=== PATIENT | male | born 1965 | race Caucasian/White ===

== ENCOUNTER → 2018-06-23 08:00 | Outpatient (CLI) | payer MEDICARE ==
[~2018-06-23 08:00] MED LIST: BIKTARVY; BUPROPION XL150 MG PO; BUSPAR 15 MG TA15 MG PO; CYMBALTA60 MG PO; DAPSONE100 MG PO; ELAVIL25 MG PO; FLOMAX0.4 MG PO; HCTZ25 MG PO; KLONOPIN1 MG PO; LYRICA50 MG PO; OMEPRAZOLE20 M1 PO; TRAZODONE HCL100 MG PO; VALTREX1000 MG PO
[2018-07-01 11:25] VITALS: BMI 25.8
== END | disposition home or self-care (01) ==
LOC: D.HCCARDIO 08:00
DX: I20.9 Angina pectoris, unspecified (principal)

== ENCOUNTER 2018-07-01 10:53 | Outpatient (CLI) | payer MEDICARE ==
[~2018-07-01] VITALS: Ht 180.3 cm; Wt 84.1 kg
--- NOTE | ~2018-07-01 | HEMODYNAMI ---
PATIENT:SERGE BELLE MEDICAL RECORD: [id number] : 69 LOCATION:[facility] ADMISSION DATE: 07/01/18 Generatedon:07/01/201813:28 Patient name: SERGE BELLE Patient #: [id number] SSN: D OB: 1965 Date of study: 07/01/2018 Page: Of Hemodynamic Procedure Report Patient Data Patient Demographics Procedure consent was obtained First Name: SERGE Gender: Male Last Name: BARBRA : 1965 Middle Initial: M Age: 53 year(s) Patient #: [id number] Race: Unknown Additional ID: [id number] Contact details [address]: [address] [place] [address] [place]: [place] [facility] [place]: [address] Admission Admission Data Admission Date: 07/01/2018 Admission Time: 10:53 Procedure Procedure Types Cath Procedure Diagnostic Procedure LHC LHC w/Coronaries Procedure Description Procedure Date Procedure Date: 07/01/2018 Procedure Start Time: 13:18 Procedure End Time: 13:25 Procedure Staff Name Function Eloina Goel RT Scrub Adilson Schmid MD Performing Physician Lyndsay Mata RT Monitor Woody Grant RN Nurse Sanket Elam RN Production Machine Shop Supervisor Procedure Data Cath Procedure Fluoroscopy Diagnostic fluoroscopy Total fluoroscopy Time: 431 time: 431 min min Diagnostic fluoroscopy Total fluoroscopy dose: 431 dose: 431 mGy mGy Contrast Material Contrast Material Type Amount (ml) Isovue 300 62 Entry Location Entry Primary Successful Side Size Upsize Upsize Entry Closure [place] ccessful Closure Location (Fr) 1 (Fr) 2 (Fr) Remarks Device Remarks Radial Right 6 Fr Mechanical artery Short Compression Estimated blood loss: 10 ml Diagnostic catheters Device Type Used For End Catheter Placement DIAGNOSTIC Kam 110cm Procedure 5Fr catheter ([id number]) Procedure Complications No complications Procedure Medications Medication Administration Route Dosage 0.9% NaCl I.V. 100 ml/hr Oxygen etCO2 Nasal cannula 2 l/min Heparin Flush Bag added to field 2 bags (1000units/500ml NS) Lidocaine 2% added to field 20 Radial Cocktail added to field 1 syringe (Verapomil 2mg/Nitro 400mcg/Heparin 1500units) Benadryl I.V. 50 mg Versed I.V. 2 mg Fentanyl I.V. 100 mcg Radial Cocktail I.A. 1 syringe (Verapomil 2mg/Nitro 400mcg/Heparin 1500units) Versed I.V. 2 mg Fentanyl I.V. 100 mcg Hemodynamics Rest Heart Rate: 71 (bpm) Pressure Samples Time Site Value (mmHg) Purpose Heart Use Rate(bpm) 13:19 LV 149/-1,13 Snapshot 92 13:19 LV 146/-5,12 Snapshot 108 Gradients Valve Time Site Site Mean SEP/DFP Peak To Heart Use 1 2 (mmHg) (sec/min) Peak Rate (mmHg) (bpm) Aortic 13:19 LV AO 85 Snapshots Pre Cath Intra NCS Post Cath Vital Signs Time Heart Resp SPO2 etCO2 NIBP Rhythm Pain Sedation Rate (ipm) (%) (mmHg) (mmHg) Status Level (bpm) 13:10:19 66 12 97 37.4 113/72(87) NSR 0 (11) 10(A) , No pain 13:14:23 67 14 96 38.9 118/70(86) NSR 0 (11) 10(A) , No pain 13:18:31 87 13 94 38.2 99/65(81) NSR 0 (11) 10(A) , No pain 13:22:28 87 11 92 36.7 106/73(82) NSR 0 (11) 10(A) , No pain Medications Time Medication Route Dose Verified Delivered Reason Notes Effectiveness by by 13:08:31 0.9% NaCl I.V. 100 Woody Woody Per ml/hr Lorigan Lorigan physician RN RN 13:08:43 Oxygen etCO2 2 l/min Woody Woody Per Nasal Lorigan Analiigan physician cannula RN RN 13:08:53 Heparin Flush added 2 bags Woody Woody used for Bag to Lorigan Lorigan procedure (1000units/500ml field RN RN NS) 13:09:02 Lidocaine 2% added 20ml Woody Woody for local to vial Lorigan Lorigan anesthetic field RN RN 13:09:14 Radial Cocktail added 1 Woody Woody used for (Verapomil to syringe Lorigan Lorigan procedure 2mg/Nitro field RN RN 400mcg/Hepari 13:10:13 Benadryl I.V. 50 mg Woody Woody Per Juanita pinzon RN RN 13:18:00 Versed I.V. 2 mg Woody Woody for sedation Juanita Grant RN RN 13:18:09 Fentanyl I.V. 100 mcg Woody Woody for sedation Juanita Grant RN RN 13:18:19 Radial Cocktail I.A. 1 Woody Adilson for (Verapomil syringe Juanita Schmid MD vasodilation 2mg/Nitro RN 400mcg/Hepari 13:21:20 Versed I.V. 2 mg Woody Woody for sedation Juanita Grant RN RN 13:21:25 Fentanyl I.V. 100 mcg Woody Woody for sedation Juanita Grant RN patient monitor Log Time Note 12:41:59 Woody Grant RN sent for patient. Start room use. 12:56:05 Time tracking: Regular hours (M-F 7:00 - 5:00) 12:56:09 Plan of Care:Hemodynamics will remain stable., Cardiac rhythm will remain stable., Comfort level will be maintained., Respiratory function will remain adequate., Patient/ family verbilizes understanding of procedure., Procedure tolerated without complication., Recovers from procedure without complications.. 12:56:16 Patient received from Pre/Post Procedure Room to CCL 2 Alert and oriented. Tansferred to table in Supine position. 12:56:17 Correct patient and procedure confirmed by team. 12:56:17 Warm blankets applied, and adam hugger turned on for patient comfort. 12:56:19 ECG and BP/O2 sat monitors applied to patient. 12:56:19 Signed procedure consent form obtained from patient. 13:08:31 0.9% NaCl 100 ml/hr I.V. was administered by Woody Grant RN; Per physician; 13:08:43 Oxygen 2 l/min etCO2 Nasal cannula was administered by Woody Grant RN; Per physician; 13:08:53 Heparin Flush Bag (1000units/500ml NS) 2 bags added to field was administered by Woody Grant RN; used for procedure; 13:09:02 Lidocaine 2% 20ml vial added to field was administered by Woody Grant RN; for local anesthetic; 13:09:14 Radial Cocktail (Verapomil 2mg/Nitro 400mcg/Heparin 1500units) 1 syringe added to field was administered by Woody Grant RN; used for procedure; 13:09:18 Vital chart was started 13:10:13 Benadryl 50 mg I.V. was administered by Woody Grant RN; Per physician; 13:12:11 Zero performed for pressure channel P1 13:15:11 Baseline sample Acquired. 13:15:16 Rhythm: sinus rhythm 13:15:18 Full Disclosure recording started 13:15:41 H&P Date Dictated: 06/16/2018 Within 30 days and on chart., H&P Addendum completed by physician on day of procedure. (MUST COMPLETE FOR ALL OUTPATIENTS). 13:15:43 Pre-procedure instructions explained to patient. 13:15:45 Family in waiting room. 13:15:46 Patient NPO since Midnight. 13:15:53 Is the patient allergic to Iodine/contrast media? No. 13:15:54 Was the patient premedicated? Yes 13:15:56 Is patient on blood thinner?No 13:15:57 Patient diabetic? No. 13:16:00 Snore? Yes 13:16:02 Sleep apnea? No 13:16:06 Dentures? No ? 13:16:12 Patient pain scale 0/10 ?. 13:16:21 IV patent on arrival in left forearm with 0.9% NaCl at [facility]. 13:16:25 Lab results completed and on chart. 13:16:28 Right Radial & Right Groin area was prepped with chlora-prep and draped in sterile fashion 13:16:30 Sharps counted by scrub and verified by R.N. 13:16:30 Alarms reviewed by R. N. 13:16:31 Physician paged 13:16:32 Physician arrived 13:16:33 --------ALL STOP TIME OUT------ 13:16:50 Final Timeout: patient, procedure, and site verified with staff and physician. All members of the team are in agreement. 13:16:52 Right Radial & Right Groin site verified by team. 13:16:57 Physical assessment completed. ASA score P 2 - A patient with mild systemic disease as per Adilson Schmid MD. 13:17:03 Sedation plan: IV Moderate Sedation Medication:Versed, Fentanyl 13:17:16 Use device set Radial Dx or PCI 13:17:18 ACIST Syringe (96404) opened to sterile field. 13:17:19 Bag Decanter (2001S) opened to sterile field. 13:17:19 Medline Cath Pack ([id number]) opened to sterile field. 13:17:20 DIAGNOSTIC WIRE .035 260cm J wire (519869) opened to sterile field. 13:17:21 ACIST Manifold (54099) opened to sterile field. 13:17:21 ACIST Hand Control (28839) opened to sterile field. 13:17:22 Tegaderm 4 x 4 (1626W) opened to sterile field. 13:17:23 MBrace Wrist Support ([id number]) opened to sterile field. 13:17:24 NEEDLE Cook 21G 4cm Radial (D77089) opened to sterile field. 13:17:27 TR BAND Standard ([id number]) opened to sterile field. 13:17:29 SHEATH 6FR Slender (80-1060) opened to sterile field. 13:17:59 Procedure started. 13:18:00 Versed 2 mg I.V. was administered by Woody Grant RN; for sedation; 13:18:05 Local anesthetic to right radial artery with Lidocaine 2% by Adilson Schmid MD.INITIAL ACCESS ONLY 13:18:09 Fentanyl 100 mcg I.V. was administered by Woody Grant RN; for sedation; 13:18:17 A 6 Fr Short sheath was inserted into the Right Radial artery 13:18:19 Radial Cocktail (Verapomil 2mg/Nitro 400mcg/Heparin 1500units) 1 syringe I.A. was administered by Adilson Schmid MD; for vasodilation; 13:18:22 J wire advanced. 13:18:32 A DIAGNOSTIC Kam 110cm 5Fr catheter ([id number]) was advanced over the wire and used for Procedure. 13:18:41 LV angiography performed. 13:19:30 EF : 60 % 13:20:01 RCA angiography performed. 13:20:51 LCA angiography performed. 13:21:20 Versed 2 mg I.V. was administered by Woody Grant RN; for sedation; 13:21:21 Catheter removed. 13:21:25 Fentanyl 100 mcg I.V. was administered by Woody Grant RN; for sedation; 13:22:55 Sheath removed intact; hemostasis achieved with Mechanical Compression to the Right Radial artery. 13:23:23 Procedure ended.(Physican Out) 13:23:39 Fluoroscopy time 431.00 minutes. 13::43 Fluoroscopy dose: 431 mGy 13::43 Flurop Dose total: 431 13:24:03 Contrast amount:Isovue 300 62ml. 13:24:05 Sharps counted by scrub and verified by R.N. 13:24:07 TR band inflated with 10cc of air. 13:24:09 Insertion/operative site no bleeding no hematoma. 13:24:19 Post Procedure Pulses reassessed and unchanged 13:24:22 Post-procedure physical assessment completed. ASA score P 2 - A patient with mild systemic disease as per Adilson Schmid MD. 13:24:27 Estimated blood loss: 10 ml 13:24:29 Post procedure instruction explained to patient.Patient verbalizes understanding. 13:24:44 Procedure and supply charges have been captured, reviewed, submitted and are correct. 13:25:03 Procedure Complication : No complications 13:25:10 Vital chart was stopped 13:25:11 See physician's report for complete and final results. 13:25:14 Report given to Pre/Post Procedure Room. 13:25:18 Patient transfered to Pre/Post Procedure Room with Stretcher. 13:25:21 Full Disclosure recording stopped 13:25:21 Procedure ended. 13:25:24 End room use (Document Last) Device Usage Item Name Manufacture Quantity Catalog Hospital Part Current Minimal Lot# / Number Charge Number Stock Stock Serial# Code ACIST Acist 1 40487 438449 771675 [id number] 20 Syringe Medical (49998) Systems Inc Medline Medline 1 [id number] 077179 61702 290227 5 Cath Pack ([id number]) Bag Microtek 1 802925 53939 698174 5 Decanter Medical Inc. () DIAGNOSTIC [facility] [place] 1 820799 902173 972044 408034 30 WIRE .035 260cm J wire (962941) ACIST Hand Acist 1 78510 784651 955736 294052 5 Control Medical (24253) Systems Inc ACIST Acist 1 10249 193160 137017 796777 5 Manifold Medical (39717) Systems Inc Tegaderm 4 3M 1 1626W 215987 426332 830268 5 x 4 (1626W) MBrace Advanced 1 140-0250-00 785024 56425 650529 5 Wrist Vascular Support Dynamics ([id number]) NEEDLE [employer] 1 E98284 567905 912250 975138 5 21G 4cm Radial (J63841) TR BAND Terumo 1 [id number] 053176 977497 884541 40 Standard ([id number]) SHEATH 6FR Terumo 1 [id number] 853042 116265 097018 5 Slender (801060) DIAGNOSTIC Terumo 1 20-9559 274195 872145 900320 5 Kam 110cm 5Fr catheter (313884) Signature Audit [place] Stage Time Signature Unsigned Intra-Procedure 07/01/2018 Woody 1:28:54 PM Juanita DAWSON Signatures Monitor : Lyndsay Mata Signature : RT Date : Time : [facility] [address], [place] [address]
[2018-07-01] MEDS ORDERED: VALTREX1000 MG PO (11:13)
[2018-07-01] MEDS ORDERED: FLOMAX0.4 MG PO (11:13)
[2018-07-01] MEDS ORDERED: DAPSONE100 MG PO (11:14)
[2018-07-01] MEDS ORDERED: HCTZ25 MG PO (11:14)
[2018-07-01] MEDS ORDERED: OMEPRAZOLE20 M1 PO (11:15)
[2018-07-01] MEDS ORDERED: CYMBALTA60 MG PO (11:15)
[2018-07-01] MEDS ORDERED: BUSPAR 15 MG TA15 MG PO (11:15)
[2018-07-01] MEDS ORDERED: BIKTARVY (11:15)
[2018-07-01] MEDS ORDERED: TRAZODONE HCL100 MG PO (11:15)
[2018-07-01] MEDS ORDERED: BUPROPION XL150 MG PO (11:16)
[2018-07-01] MEDS ORDERED: LYRICA50 MG PO (11:16)
[2018-07-01] MEDS ORDERED: KLONOPIN1 MG PO (11:16)
[2018-07-01] MEDS ORDERED: ELAVIL25 MG PO (11:17)
[2018-07-01 11:25] VITALS: BP 121/74; Ht 180.3 cm; Wt 84.1 kg
[2018-07-01 11:51] LABS: ANION GAP 10.6 mmol/L (8-16); CALCIUM 8.5 mg/dL (8.5-10.1); CARBON DIOXIDE 30.6 mmol/L (21.0-32.0); CREATININE - SERUM 1.2 mg/dL (0.6-1.3); POTASSIUM - SERUM 3.2 mmol/L (3.5-5.1)
[2018-07-01 11:52] LABS: BASOPHILS 0.4 % (0-2); EOSINOPHILS 0.8 % (0-7); HEMOGLOBIN 13.9 g/dL (13.5-17.5); IMMATURE GRANULOCYTES 0.2 % (0-5); MCH 34.8 pg (26.0-34.0); MCHC 35.6 g/dL (31.0-37.0); MCV 97.5 fL (80.0-100.0); MEAN PLATELET VOLUME 9.9 fL (7.4-10.4); MONOCYTES 13.2 % (2-11); NEUTROPHILS 62.4 % (40-80); PLATELET COUNT 228 10x3/uL (130-400); RDW 12.9 % (11.5-14.5); WBC 5.1 10x3/uL (4.8-10.8)
--- NOTE | 2018-07-01 13:50 | NUR ---
ROOM AIR, NO RESP DISTRESS. RIGHT WRIST TR BAND CDI, NO BLEEDING OR HEMATOMA NOTED. NO C/O PAIN OR NAUSEA. VSS. FAMILY AT BEDSIDE, CALL LIGHT WITHIN REACH.
--- NOTE | 2018-07-01 14:20 | NUR ---
SIPPING ON DRINK AND EATING SANDWICH WITH NO C/O NAUSEA. RIGHT WRIST TR BAND CDI, NO BLEEDING OR HEMATOMA NOTED. DENIES ANY NEEDS. VSS. WILL CONTINUE TO MONITOR.
--- NOTE | 2018-07-01 14:40 | NUR ---
3CC OF AIR REMOVED FROM TR BAND WITH NO BLEEDING NOTED. VSS. WILL CONTINUE TO MONITOR CLOSELY.
--- NOTE | 2018-07-01 14:55 | NUR ---
3CC OF AIR REMOVED FROM TR BAND WITH NO BLEEDING NOTED.
--- NOTE | 2018-07-01 15:10 | NUR ---
LEFT PIV D/C'D WITH CATHETER INTACT, BAND AID TO SITE. UP TO BEDSIDE TO GET DRESSED. AMBULATED TO RESTROOM.
--- NOTE | 2018-07-01 15:20 | NUR ---
REMAINING AIR REMOVED FROM TR BAND WITH NO BLEEDING NOTED. DRESSING PLACED TO SITE. DISCHARGE INSTRUCTIONS GIVEN, VERBALIZED UNDERSTANDING.
--- NOTE | 2018-07-01 15:29 | NUR ---
TAKEN OUT VIA WHEELCHAIR BY CATH CLINICAL COORDINATOR. LEFT FACILITY WITH FAMILY AND ALL PERSONAL BELONGINGS.
== END 2018-07-01 15:29 | disposition home or self-care (01) ==
LOC: D.CATH 10:53
PROVIDERS: Internal Medicine Cardiovascular Disease
DX: I20.9 Angina pectoris, unspecified (principal); R94.30 Abnormal result of cardiovascular function study, unspecified

== ENCOUNTER 2018-11-24 14:30 | Outpatient (CLI) | payer MEDICARE ==
[2018-07-01 11:25] VITALS: BMI 25.8
== END 2018-11-24 15:00 | disposition home or self-care (01) ==
LOC: D.MAMMO 14:30
PROVIDERS: ATTEND Family Medicine
DX: N63.23 Unspecified lump in the left breast, lower outer quadrant (principal)